=== PATIENT | male | born 1965 | race Caucasian/White ===

== ENCOUNTER 2024-02-17 21:02 | Emergency (ER) | payer MEDICAID, SELFPAY ==
[2024-02-17 21:05] VITALS: BP 168/92; PULSE 87; RESP 18; TEMP 36.7; O2SAT 98
[2024-02-17 22:08] LABS: Influenza A QL RT-PCR Negative (Negative); Influenza B QL RT-PCR Negative (Negative); RSV RNA, RT-PCR Negative (Negative); SARS-CoV-2 RNA PCR Negative (Negative)
--- NOTE | 2024-02-17 22:41 | ED.GENADULT ---
HPI - General Adult General Chief complaint: Upper Respiratory Infection Stated complaint: bodyaches Time Seen by Provider: 02/17/24 22:09 History of Present Illness HPI narrative: Patient is a 58-year-old male who presents the emergency department this evening complaining of generalized body aches and low-grade fever at home. Patient states that he took his temperature at home and noted to be 100.3? F. patient took an oral Tylenol prior to arriving to the emergency department and his temperature in triage was noted to be 98.1? F. Patient also complains of mild dysuria, denies any lower back pain or flank pain, denies any chest pain or shortness of breath, denies any abdominal pain but does admit that he has been having a lot of gas lately. Denies any nausea, vomiting, constipation or diarrhea. Denies any headaches, dizziness, or any lightheadedness, and denies any focal weakness numbness and no tingling. No additional symptoms or concerns at this time. Related Data Allergies Allergy/AdvReac Type Severity Reaction Status Date / Time No Known Allergies Allergy Mild Verified 09/04/10 14:05 Review of Systems Review of Systems: All systems are reviewed and are negative unless stated otherwise in the HPI. Exam Narrative: General: Alert, awake, afebrile, in no acute distress. HEENT: PERRL, no rhinorrhea, no post nasal drip, oropharynx clear. Cardiovascular: Regular rate and rhythm, no murmurs, rubs or gallops, no peripheral edema. Respiratory: Clear to auscultation bilaterally, no tachypnea, no wheezing, no rhonchi, no rubs, no respiratory distress. Abdomen: Soft, nontender, nondistended, no rebound, no guarding, no peritoneal signs. Musculoskeletal: No joint swelling or deformity, normal muscle tone. Skin: No rashes or petechia, no signs of infection. Neurological: Alert and oriented to person, place, and time. Follows all commands. No focal deficits, speech is clear and fluent. Course Vital Signs Vital signs: Vital Signs Temperature 98.1 F 02/17/24 21:05 Pulse Rate 87 02/17/24 21:05 Respiratory Rate 18 02/17/24 21:05 Blood Pressure 168/92 H 02/17/24 21:05 Pulse Oximetry 98 02/17/24 21:05 Oxygen Delivery Room Air 02/17/24 21:05 Temperature 98.1 F 02/17/24 21:05 Pulse Rate 75 02/17/24 23:00 Respiratory Rate 18 02/17/24 23:00 Blood Pressure 147/82 H 02/17/24 23:00 Pulse Oximetry 100 02/17/24 23:00 Oxygen Delivery Room Air 02/17/24 21:05 Medical Decision Making MDM Narrative Medical decision making narrative: The patient was evaluated by myself in the emergency department. History is obtained from patient who is an independent historian and physical exam was performed. External medical records were reviewed at this time. IV was established and pertinent tests were ordered. Laboratory results obtained revealing no acute process. Urinalysis negative. Differential diagnosis considerations include acute viral syndrome, gastroenteritis, and infectious process such as urinary tract infection. Comorbidities impacting this visit include none. I have evaluated and discussed social determinants of health with the patient that could potentially impact subsequent diagnosis and treatment plans. On repeat assessment of the patient, reevaluation revealed that the patient is doing well and is in no acute distress. Patient symptoms have remained stable since he arrived to our emergency department. Repeat vital signs were all reviewed and noted to be stable. Differential diagnosis and treatment plan were discussed with the patient at bedside. Patient agrees with discussion and after shared medical decision making agrees with discharge. All questions were answered to the patient's satisfaction. Patient will follow up with his PCP in 3-5 days. Patient was provided with strict return precautions and instructed to return to the emergency department if any new or worsening symptoms devel
[2024-02-17 22:45] LABS: Basophils Percent Auto 0.4 % (0.2-1.2); Eosinophils Absolute Auto 0.2 K/mm3 (0-0.3); Hematocrit 41.2 % (42.0-52.0); Hemoglobin 14.1 g/dL (14.0-18.0); Immature Granulocyte Absolute 0.02 K/mm3 (0.00-0.031); Immature Granulocyte Percent A 0.2 % (0-0.5); Lymphocytes Absolute Auto 0.72 K/mm3 (0.9-3.2); Lymphocytes Percent Auto 8.4 % (18.3-44.2); Mean Corpuscular HGB Conc 34.2 g/dl (32-36); Mean Corpuscular Hemoglobin 31.1 pg (26-34); Mean Corpuscular Volume 90.7 fl (80-100); Mean Platelet Volume 10.3 fl (7.4-10.4); Monocytes Percent Auto 11.6 % (2.6-8.5); Neutrophils Absolute Auto 6.6 K/mm3 (1.3-6.7); Neutrophils Percent Auto 77.4 % (45.5-73.1); Platelet Count Result 143 k/mm3 (150-375); Red Blood Count 4.54 M/mm3 (4.6-6.20); Red Cell Distribution Width 12.8 % (11.5-14.5); White Blood Count 8.5 K/mm3 (4.5-10.0)
[2024-02-17 22:48] LABS: Alanine Aminotransferase 14 U/L (6-50); Albumin Level 4.3 g/dL (3.5-5.1); Alkaline Phosphatase 60 U/L (38-126); Anion Gap 3 mmol/L (4-12); Aspartate Amino Transferase 20 U/L (17-59); Bilirubin,Total 0.8 mg/dL (0.2-1.3); Blood Urea Nitrogen 18 mg/dL (9-20); Calcium 9.2 mg/dL (8.4-10.2); Carbon Dioxide 33 mmol/L (22-30); Chloride 103 mmol/L (98-107); Estimated CRCL calculation 82 ml/min; Estimated Glomerular Filt Rate > 60; Glucose 89 mg/dL (65-110); Lipase 59 U/L (23-300); Magnesium 2.3 mg/dL (1.6-2.3); Potassium 3.8 mmol/L (3.4-5.0); Sodium 139 mmol/L (137-145)
[2024-02-17 22:59] LABS: Appearance Urine Clear (Clear); Bilirubin Urine Negative (Negative); Blood Urine Negative (Negative); Color Urine Yellow (Yellow); Glucose Urine UA Negative (Negative); Ketones Urine Negative (Negative); Leukocyte Esterase Ur Negative LEU/UL (Negative); Nitrate Urine Negative (Negative); Protein Urine Negative (Negative); Specific Grav Ur 1.011 (1.001-1.035); Urobilinogen Urine 0.2 mg/dL (<2.0); pH Urine 6.5 (5.0-9.0)
[2024-02-17 23:00] VITALS: BP 147/82; PULSE 75; RESP 18; O2SAT 100
--- NOTE | 2024-02-17 23:02 | PC.NURSE ---
care and report given to IHSAN Joiner. all questions answered.
[2024-02-17 23:08] LABS: Add Urine Microscopic? NO
[2024-02-17 23:21] VITALS: BP 144/82; PULSE 87; RESP 16; O2SAT 100
== END 2024-02-17 23:22 | disposition home or self-care (01) ==
PROVIDERS: Emergency Provider Emergency Medicine
DX: B34.9 Viral infection, unspecified (principal); Z20.822 Contact with and (suspected) exposure to COVID-19
CPT/HCPCS: 36415; 80053; 81003; 82248; 83690; 83735; 85025; 87637; 99283

== ENCOUNTER 2024-02-18 21:44 | Emergency (ER) | payer MEDICAID, SELFPAY ==
--- NOTE | ~2024-02-18 | US_ITS ---
TESTICULAR ULTRASOUND (Doppler ultrasound interrogation techniques used as needed for this exam.) Ordering provider: Norris Hall MD History: . right testicular pain . Comparison: None. FINDINGS: TESTICLES: Normal in size. The right measures 4.2 x 2.4 x 2.8 cm and the left measures 4.4 x 2.3 x 2. 2 cm. Normal echogenicity bilaterally without mass lesion. Normal Doppler flow bilaterally. EPIDIDYMIDES: Normal in size. The right shows a complex cyst which measures 3.5 x 1.8 x 2.4 cm,. The left measures 1.1 cm. A cyst is seen in the left side measuring 0.4 x 0.6 x 0.5 cm. Normal echogenici ty bilaterally. Both demonstrate normal Doppler flow. HYDROCELE: Small left. VARICOCELE: None. OTHER ABNORMALITY: None seen. IMPRESSION: No evidence of torsion. Large right epididymal cyst. Small left epididymal cyst. Small left hydrocele . Otherwise, normal testicular ultrasound. Reviewed, dictated and finalized at location A. IMPRESSION: No evidence of torsion. Large right epididymal cyst. Small left epididymal cyst . Small left hydrocele. Otherwise, normal testicular ultrasound.
[2024-02-18 21:54] VITALS: BP 148/108; PULSE 97; RESP 15; TEMP 36.6; O2SAT 99
--- NOTE | 2024-02-18 23:21 | ED.MALEGU ---
HPI - Male Genitourinary General Chief complaint: Urogenital-Male Stated complaint: scrotal pain Time Seen by Provider: 02/18/24 21:51 History of Present Illness HPI Narrative: Patient is a 58-year-old male who presents ER with pain to the right testicle. Increasing over last couple of hours. No known trauma. Has a known epididymal cyst. No urinary frequency urgency or dysuria. Denies trauma. No alleviating factors. Patient currently in town from [facility]. Related Data Allergies Allergy/AdvReac Type Severity Reaction Status Date / Time No Known Allergies Allergy Mild Verified 09/04/10 14:05 Review of Systems Constitutional: Constitutional: Reports no additional constitutional complaints Gastrointestinal: Gastrointestinal: Reports no additional gastrointestinal complaints Genitourinary: Genitourinary: Denies hematuria, Denies dysuria, Reports testicular pain and Denies urinary frequency PMFSH Past Medical History Medical History (Updated 02/19/24 @ 00:32 by Norris Hall MD) Epididymal cyst Exam Narrative: GENERAL: Well-appearing, well-nourished, and in no acute distress. HEAD: Normocephalic, atraumatic. : Normal circumcised penis without discharge. Normal left testicle with palpation. Enlarged right-sided testicle with tenderness over the epididymis. Scrotum without erythema or induration. EXTREMITIES: Normal range of motion. No edema. SKIN: Warm, dry, no rash. NEURO: Alert and oriented x3. PSYCH: Normal mood and affect. Course Course Emergency Course: Recommend anti-inflammatories and scrotal support. Informed of results. Discharge home. Vital Signs Vital signs: Vital Signs Temperature 97.9 F 02/18/24 21:54 Pulse Rate 97 02/18/24 21:54 Respiratory Rate 15 02/18/24 21:54 Blood Pressure 148/108 H 02/18/24 21:54 Pulse Oximetry 99 02/18/24 21:54 Oxygen Delivery Room Air 02/18/24 21:54 Temperature 97.9 F 02/18/24 21:54 Pulse Rate 97 02/18/24 21:54 Respiratory Rate 15 02/18/24 21:54 Blood Pressure 148/108 H 02/18/24 21:54 Pulse Oximetry 99 02/18/24 21:54 Oxygen Delivery Room Air 02/18/24 21:54 MDM - Male Genitourinary Lab Data Labs: Lab Results 02/18/24 Range/Units 23:42 Urine Color Yellow (Yellow) Urine Appearance Clear (Clear) Urine pH 6.5 (5.0-9.0) Ur Specific [place] 1.018 (1.001-1.035) Urine Protein Negative (Negative) mg/dL Urine Glucose (UA) Negative (Negative) mg/dL Urine Ketones Trace H (Negative) mg/dL Ur Blood (Man) Negative (Negative) Urine Nitrate Negative (Negative) Urine Bilirubin Negative (Negative) Urine Urobilinogen 1.0 (<2.0) mg/dL Leukocyte Esterase Rfl Negative (Negative) ARELI/UL Imaging Data Radiologist's impression: ITS Impressions Scrotum Ultrasound 02/18/24 23:03 IMPRESSION: No evidence of torsion. Large right epididymal cyst. Small left epididymal cyst. Small left hydrocele. Otherwise, normal testicular ultrasound. Discharge Plan Discharge Clinical Impression: Cyst of epididymis Patient Disposition: Home, Self-Care Condition: Stable Instructions: Testicle Pain (ED) Additional Instructions: Wear supportive underwear. Take naproxen twice a day to help with discomfort. Follow-up with your urologist. Prescriptions: New naproxen 375 mg tablet 375 mg PO BID Qty: 14 0RF Follow-up/Referrals: UNKNOWN,DOCTOR [Primary Care Provider] -
[2024-02-18] MEDS: KETOROLAC (*BKC) 60 MG/2 ML VIAL IM (23:43)
[2024-02-18 23:50] LABS: Appearance Urine Clear (Clear); Bilirubin Urine Negative (Negative); Blood Urine Negative (Negative); Color Urine Yellow (Yellow); Glucose Urine UA Negative (Negative); Ketones Urine Trace mg/dL (Negative); Leukocyte Esterase Ur Negative LEU/UL (Negative); Nitrate Urine Negative (Negative); Protein Urine Negative (Negative); Specific Grav Ur 1.018 (1.001-1.035); pH Urine 6.5 (5.0-9.0)
[2024-02-19 00:09] LABS: Add Urine Microscopic? NO
[2024-02-19 00:46] VITALS: BP 147/87; PULSE 90; RESP 18; O2SAT 100
== END 2024-02-19 00:46 | disposition home or self-care (01) ==
PROVIDERS: Emergency Provider Emergency Medicine
DX: N50.3 Cyst of epididymis (principal)
CPT/HCPCS: 76870; 81003; 93976; 96372; 99284; J1885